=== PATIENT | male | born 1990 | race Hispanic/Latino ===

== ENCOUNTER → 2020-11-27 11:31 | Outpatient (CLI) | payer OTHER, SELFPAY ==
[2020-11-27 13:48] LABS: COVID19 -Nasal RAPID Negative (Negative)
== END ==
PROVIDERS: Visit Provider Physician Assistant
DX: Z20.822 Contact with and (suspected) exposure to COVID-19 (principal); Z01.812 Encounter for preprocedural laboratory examination
CPT/HCPCS: 87635

== ENCOUNTER → 2020-11-28 13:33 | Outpatient (CLI) | payer OTHER, SELFPAY ==
--- NOTE | 2020-11-28 | DI.ECHO.S_ITS ---
[facility]---------+ [facility] +---------+ : : [address] : [address] : : : : [id number] : : : : Phone: [phone]---------+ Echocardiogram Report + + :Name: WALLY CURTIS Study Date: 11/28/2020 Height: 70 in : :[facility] ReadingLocation: Weight: 230 lb : : Gender: Male BSA: 2.2 m2 : :: 1990 Age: 30 yrs BP: 150/89 mmHg: :Reason For Study: Chest pain : :Ordering Physician: Millie : :Elis Performed By: Slade Jeong : :Referring: MILLIE GILLIS E : + + Interpretation Summary The ejection fraction is estimated to be 55-60%. Normal diastolic function. The right ventricle is normal in size and function. No significant valvular abnormalities. Unable to estimate PASP. Procedure: A two-dimensional transthoracic echocardiogram with color flow and Doppler was performed. The study quality was technically adequate. There is no prior echocardiogram noted for this patient. Left Ventricle: The left ventricle is mildly dilated. There is normal left ventricular wall thickness. Left ventricular systolic function is normal. The ejection fraction is estimated to be 55-60%. There are no focal wall motion abnormalities. Diastolic parameters suggest probable normal left ventricular diastolic function and normal filling pressures. Right Ventricle: The right ventricle is normal in size and function. Atria: Both atria are normal in size. There is no Doppler evidence for an interatrial shunt. Mitral Valve: The mitral valve is normal in structure and function. There is no mitral regurgitation noted. Aortic Valve: The aortic valve is normal in structure and function. No aortic regurgitation is present. Tricuspid Valve: The tricuspid valve is normal in structure and function. There is trace tricuspid regurgitation. Pulmonic Valve: The pulmonic valve is normal in structure and function. There is mild pulmonic regurgitation. Great Vessels: The aortic root is normal size. The dimensions of the ascending aorta are normal. The IVC is of normal diameter and collapses greater than 50% with a sniff. This suggests a low right atrial pressure of 3 mm Hg. Pericardium/ Pleura There is no pericardial effusion. There is no pleural effusion. MMode/2D Measurements & Calculations LVIDd: 6.0 cm LVOT diam: 2.3 cm LVIDs: 4.0 cm Ao root diam: 3.1 cm FS: 33.7 % asc Aorta Diam: 2.6 cm IVSd: 1.0 cm LVPWd: 0.97 cm LV neumann. diameter/BSA (cm/m^2): 2.7 LV sys. diameter/BSA (cm/m^2): 1.8 LA dimension: 3.6 cm RA long axis: 5.5 cm LA A2 area: 22.7 cm2 LA A4 area: 18.3 cm2 LA length (vol): 5.7 cm LA vol: 62.3 ml LA vol index: 28.1 ml/m2 RVD1 (basal): 3.5 cm LVLs ap4: 7.7 cm LVLd ap2: 8.8 cm TAPSE_phl: 3.3 cm LVLs ap2: 7.4 cm Doppler Measurements & Calculations Ao V2 max: 154.0 cm/sec LVOT Max John: 103.0 cm/sec Ao V2 mean: 106.0 cm/sec LV V1 max P.2 mmHg Ao max P.0 mmHg LV V1 VTI: 21.7 cm Ao mean P.0 mmHg FRANK(I,D): 3.1 cm2 Ao V2 VTI: 29.0 cm FRANK(V,D): 2.8 cm2 sev ratio: 0.75 FRANK indexed to BSA (cm^2/m^2): 1.4 MV E max john: 104.0 cm/sec TR max john: 238.0 cm/sec MV A max john: 51.8 cm/sec TR max P.7 mmHg MV E/A: 2.0 PA pr(Accel): 23.2 mmHg Med Peak E' John: 10.9 cm/sec E/E' med: 9.5 Lat Peak E' John: 16.7 cm/sec E/E' lat: 6.2 E/e' average: 7.9 MV dec time: 0.24 sec SV(LVOT): 90.2 ml AV VR_phl: 0.67 FRANK(VTI)/BSA_phl: 1.4 MV P1/2t-pr_phl: 71.0 msec Reading Physician:01:23 PM
--- NOTE | 2020-11-29 14:21 | DI.NM.S_ITS ---
PROCEDURE: Exercise treadmill stress test without imaging. DATE OF SERVICE: 11/28/2020 ORDERING PROVIDER: Millie Gillis M.D. INDICATIONS: The patient is a 30-year-old male with exertional dyspnea and palpitations following COVID infection. FINDINGS: 1. The patient was able to exercise for 13 minutes 11 seconds on a standard [place] protocol suggesting mildly impaired exercise capacity with an YOAV of +9%, achieving 14.8 METS. 2. He had a normal heart rate and blood pressure response to exercise, achieving a maximum heart rate of 174 BPM (91% of his predicted maximum). 3. He had no chest pain or other anginal discomfort. 4. His resting ECG shows sinus rhythm with normal ST segments. There were no significant ST-segment shifts or arrhythmias with exercise. IMPRESSION: 1. Normal exercise treadmill study for ischemia. 2. Mildly impaired exercise capacity without chest discomfort or arrhythmias. EVERWALLY - MEENA/mariah/jaime doc#: [id number]/job#: [id number] dd: 11/29/2020 12:52:00 dt: 11/29/2020 13:46:00 DICTATING MD/COPIES TO: Dimitrios Mccormack MD; Millie Gillis M.D. COPIES MNE: CAROLINE;
== END ==
PROVIDERS: Referring Provider Internal Medicine Cardiovascular Disease; Visit Provider Internal Medicine Cardiovascular Disease
DX: I37.1 Nonrheumatic pulmonary valve insufficiency (principal); R07.9 Chest pain, unspecified; R00.2 Palpitations; R06.09 Other forms of dyspnea; Z86.16 Personal history of COVID-19
CPT/HCPCS: 93017; 93306